=== PATIENT | male | born 1980 | race American Indian/Alaskan Native ===

== ENCOUNTER 2016-06-20 14:00 | Emergency (ER) | payer SELFPAY ==
[2016-06-20 14:37] VITALS: BP 120/89
[2016-06-20 17:12] LABS: Anion Gap 23 mmol/L; BUN/Creatinine Ratio 25.71; Blood Urea Nitrogen 18 mg/dL (9-20); Calcium 9.7 mg/dL (8.4-10.2); Carbon Dioxide 19 mmol/L (22-30); Glucose 95 mg/dL (75-100); Potassium 4.3 mmol/L (3.6-5.0); Sodium 140 mmol/L (137-145)
[2016-06-20 17:15] LABS: Basophils % (Auto) 0.3 % (0.0-1.8); Eosinophils % (Auto) 3.4 % (0.0-4.3); Hematocrit 44.6 % (35.5-45.6); Hemoglobin 14.7 gm/dl (11.8-15.2); Mean Corpuscular HGB Conc 33 % (32-34); Mean Corpuscular Hemoglobin 29 pg (28-32); Mean Corpuscular Volume 89 fl (84-94); Platelet Count 271 K/mm3 (140-440); Red Blood Count 5.01 M/mm3 (3.65-5.03); Red Cell Distribution Width 13.4 % (13.2-15.2); White Blood Count 9.1 K/mm3 (4.5-11.0)
== END 2016-06-20 17:32 | disposition left against medical advice (07) ==
LOC: ED 14:00
DX: R07.89 Other chest pain (principal); R00.2 Palpitations; F17.200 Nicotine dependence, unspecified, uncomplicated; Z53.21 Procedure and treatment not carried out due to patient leaving prior to being seen by health care provider
CPT/HCPCS: 36415; 80048; 84484; 85025; 93005; 93010

== ENCOUNTER 2016-09-25 18:14 | Emergency (ER) | payer OTHER ==
[2016-09-25 20:07] LABS: Urine Drugs of Abuse Note Disclamer
[2016-09-25 20:18] LABS: Bilirubin,Urine SM (Negative); Blood,Urine SM (Negative); Ketones,Urine TR mg/dL (Negative); Leukocyte Esterase,Urine NEG (Negative); Mucus,Urine 3+ /HPF; Nitrite,Urine NEG (Negative)
[2016-09-25 20:55] LABS: Basophils % (Auto) 0.4 % (0.0-1.8); Eosinophils % (Auto) 3.5 % (0.0-4.3); Hematocrit 46.9 % (35.5-45.6); Hemoglobin 15.8 gm/dl (11.8-15.2); Mean Corpuscular HGB Conc 34 % (32-34); Mean Corpuscular Hemoglobin 30 pg (28-32); Mean Corpuscular Volume 87 fl (84-94); Platelet Count 309 K/mm3 (140-440); Red Blood Count 5.36 M/mm3 (3.65-5.03); Red Cell Distribution Width 13.2 % (13.2-15.2); White Blood Count 11.6 K/mm3 (4.5-11.0)
[2016-09-25 20:59] LABS: Anion Gap 22 mmol/L; BUN/Creatinine Ratio 13.33; Blood Urea Nitrogen 12 mg/dL (9-20); Carbon Dioxide 21 mmol/L (22-30); Chloride 103.4 mmol/L (98-107); Glucose 89 mg/dL (75-100); Potassium 4.4 mmol/L (3.6-5.0); Sodium 142 mmol/L (137-145)
--- NOTE | 2016-09-25 23:20 | Emergency Department Report ---
ED Psych HPI - General Chief Complaint: Psych Stated Complaint: MH Time Seen by Provider: 09/25/16 21:51 Source: patient Mode of arrival: Ambulatory - History of Present Illness Initial Comments: 36-year-old male with a past psychiatric history presents to the hospital list hallucinations, homicidal and suicidal ideation. He was medical record available for review. Patient resides at a nursing home. Apparently he is hallucinating and seeing bees and ants. Patient also had voices telling him to kill himself, kill other people, and manipulate everybody's minds. Patient was exposing himself to other patients while in the waiting room. He is cooperative during my evaluation. Patient states history of suicide attempts in the past by cutting his wrist. Denies pain currently. Contrary to triage when asked if he wants to kill anybody patient states no. No physical complaints reported. Pt states he is taking his medications. - Related Data Home Medications Medication Instructions Recorded Confirmed Last Taken Unobtainable 09/25/16 09/25/16 Unknown Allergies Allergy/AdvReac Type Severity Reaction Status Date / Time No Known Allergies Allergy Unverified 06/20/16 14:37 ED Review of Systems ROS: Stated complaint: MH Other details as noted in HPI Comment: All other systems reviewed and negative Other: Constitutional: No fevers chills Eyes: No eye pain visual changes ENT: No ear pain or throat pain Neck: Denies pain Respiratory: Denies cough wheezing shortness of breath Cardiovascular: Denies chest pain, palpitations, syncope GI: Denies abdominal pain, nausea, vomiting, diarrhea : Denies dysuria Musculoskeletal: Denies back pain Skin: Denies rash, lesions, erythema Neurologic: Denies headache, numbness, weakness Psychiatric:as per hpi ED Past Medical Hx - Past Medical History Additional medical history: patient unable to give history - Surgical History Additional Surgical History: HERNIA REPAIR - Social History Smoking Status: Unknown if ever smoked - Medications Home Medications: Home Medications Medication Instructions Recorded Confirmed Last Taken Type Unobtainable 09/25/16 09/25/16 Unknown History ED Physical Exam - General Limitations: Other - Other Other exam information: General: No limitations, patient is alert in no acute distress Head exam: Atraumatic, normocephalic Eyes exam: Normal appearance ENT: Moist mucous membrane, normal oropharynx Neck exam: Normal inspection, full range of motion Respiratory exam: Clear to auscultation bilateral Cardiovascular: Normal rate and rhythm Abdomen: Soft, nondistended, and nontender, with normal bowel sounds, no rebound, or guarding Extremity: Full range of motion normal inspection no deformity Back: Normal Inspection, full range of motion, no tenderness Neurologic: Alert, oriented x3, cranial nerves intact, no motor or sensory deficit Psychiatric: normal affect, normal mood Skin: Warm, dry, intactm ED Course Vital Signs 09/25/16 09/25/16 09/25/16 19:42 20:14 20:26 Temperature 98.8 F 98.8 F Pulse Rate 85 85 Respiratory 20 20 20 Rate Blood Pressure 123/73 Blood Pressure 123/73 [Left] O2 Sat by Pulse 97 98 97 Oximetry - Consultations Consultation #1: 09/26/16 00:45 consult pending ED Medical Decision Making - Lab Data Result diagrams: 09/25/16 20:28 09/25/16 20:28 - Medical Decision Making 1013, transfer form signed. medically cleared - Differential Diagnosis schizophrenia, psychosis, suicidal ideation, homicidal ideation Critical care attestation.: If time is entered above; I have spent that time in minutes in the direct care of this critically ill patient, excluding procedure time. ED Disposition Clinical Impression: Psychosis, Suicidal ideation, Homicidal ideation, Medical clearance for psychiatric admission Disposition: [id number] PSY HOSP/PSY UNIT Is pt being admited?: No Condition: Stable Time of Disposition: 00:46 (awaiting acceptance)
--- NOTE | 2016-09-27 14:39 | Consultation ---
History of Present Illness - Reason for Consult Consult date: 09/27/16 Reason for consult: SI/hallucinations - Chief Complaint Chief complaint: "I'm not good" 36-year-old male with a past psychiatric history presents to the hospital list hallucinations, homicidal and suicidal ideation. He was seen for psychiatric consultation. [facility]. Per the record, he was seeing bees and ants. He states he has not been sleeping and his thoughts are racing. Per the record, the voices telling were telling him to kill himself, kill other people, and manipulate everybody's minds. Per the record, the patient was exposing himself to other patients while in the waiting room. He is guarded and does not want to participate in the interview. Per the record, the patient has a history of suicide attempts in the past by cutting his wrist. He reports lithium and depakote help him. Medications and Allergies Allergies Allergy/AdvReac Type Severity Reaction Status Date / Time No Known Allergies Allergy Unverified 06/20/16 14:37 Home Medications Medication Instructions Recorded Confirmed Last Taken Type Unobtainable 09/25/16 09/25/16 Unknown History Past psychiatric history - Past Medical History Past Medical History: other (declines to discuss) Past Surgical History: Other (declines to discuss) - past Psychiatric treatment and history Psych: Psychosis psychiatric treatment history: usually takes lithium and depakote, which he states works well - Social History Social history: other (jail) Mental Status Exam - Vital signs Last Vital Signs Temp 98.3 F 09/27/16 08:18 Pulse 63 09/27/16 08:18 Resp 20 09/27/16 08:18 BP 121/81 09/27/16 08:18 Pulse Ox 100 09/27/16 08:18 - Exam Narrative exam: thought process-limited in scope Orientation: time, place, person Affect: agitated Mood: congruent with affect Thought content: paranoia Perceptions: auditory, command, hallucinations Speech: minimal response Concentration: distractible Motor activity: normal Level of consciousness: alert Sleep Symptoms: Difficulty Falling Asleep Interaction: guarded Results Result Diagrams: 09/25/16 20:28 09/25/16 20:28 All other labs normal. Assessment and Plan Assessment and plan: Impression: psychosis bipolar disorder with psychosis vs. Schizoaffective disorder, bipolar type Recommendation: Start depakote dr 500mg bid for mood stabilization Start lithium 300mg bid for mood stabilizations (these medications have helped him previously) Consider added an antipsychotic Will follow until transfer to psychiatric facility.
[2016-09-27 16:57] LABS: Alanine Aminotransferase 39 units/L (7-56); Albumin 4.7 g/dL (3.9-5); Albumin/Globulin Ratio 1.6 %; Alkaline Phosphatase 53 units/L (35-129); Total Protein 7.7 g/dL (6.3-8.2)
[2016-09-27 16:59] LABS: Bilirubin,Direct < 0.2 mg/dL (0-0.2); Bilirubin,Indirect 0.7 mg/dL
[2016-09-27] MEDS: ESKALITH PO SCH (22:03)
--- NOTE | 2016-09-28 10:00 | Progress Note ---
Subjective - Reason for Consult Consult date: 09/28/16 Reason for consult: Psychiatry Follow-up - Chief Complaint Chief complaint: "Who are you" 36-year-old male with a past psychiatric history presents to the hospital list hallucinations, homicidal and suicidal ideation. Today patient is calm and cooperative with a circumstantial thought process. Before I could fully ask him a question he would answer "no." Also, he wouldn't open his eyes during our conversations. He denies any side effects of the psy medications. He denies SI/ HI's, but stated that the auditory hallucinations come and go. He would not say if the voices are active currently. He denies sleep disturbance and a poor appetite. Per the staff, no behavioral disturbances overnight. Mental Status Exam - Vital signs Last Vital Signs Temp 98.3 F 09/27/16 08:18 Pulse 71 09/28/16 06:07 Resp 17 09/28/16 06:07 BP 120/60 09/28/16 06:07 Pulse Ox 98 09/28/16 06:07 - Exam Narrative exam: MSE: Appearance: calm, cooperative Behavior: poor eye contact Speech: regular rate and tone Mood: "okay today" Affect: congruent to mood Thought Process: circumstantial Thought Content: denies SI/HI's and VH's, intermittent AH's Motor Activity: ambulatory Cognition: A/Ox 3 Insight: limited Judgment: limited Assessment and Plan Impression: Bipolar DO with psychosis vs. Schizoaffective disorder, bipolar type. Today patient is calm and cooperative with a circumstantial thought process. He denies SI/HI's. Recommendation/Plan: Continue depakote 500 mg bid for mood stabilization, lithium 300mg bid for mood stabilizations (these medications have helped him previously), possibly initiate an antipsychotic. Patient accepted at [facility], awaiting transport time.
[2016-09-28] MEDS: ESKALITH PO SCH ×2 (10:21→22:45)
[2016-09-29] MEDS: ESKALITH PO SCH (10:06)
[2016-09-29 11:03] VITALS: BP 130/80
== END 2016-09-29 11:49 ==
LOC: EEVIPCON 18:14 → ED 18:14
DX: F29 Unspecified psychosis not due to a substance or known physiological condition (principal); R45.851 Suicidal ideations; R45.850 Homicidal ideations
CPT/HCPCS: 36415; 80048; 80074; 80307; 81001; 85025; 99285; G0480; 80320